=== PATIENT | female | born 1940 | race Caucasian/White ===

== ENCOUNTER 2022-03-14 15:28 | Inpatient (IN) | payer MEDICARE, OTHER ==
[~2022-03-14] VITALS: Ht 165.1 cm; Wt 83.9 kg
[~2022-03-14 15:28] MED LIST: ACETAMINOPHEN650 MG PR; ALBUTEROL1.25 MG/3 INH; ALDACTONE25 MG PO; ARICEPT10 MG PO; ARICEPT5 MG PO; ASPIR 8181 MG PO; AUGMENTIN 875-1 EACH PO; BETAPACE120 MG PO; BETAPACE80 MG PO; BISACODYL10 MG PR; BUDESONIDE0.25 MG/2 INH; BUSPAR 5MG TABLE5 MG PO; BUSPIRONE HCL15 MG PO; CALCIUM500 M1 PO; CARDIZEM 60MG T60 MG PO; CARDIZEM CD120 MG PO; CARDIZEM CD180 MG PO; CARDIZEM60 MG PO; CARVEDILOL25 MG PO; CEFDINIR300 MG PO; CEFUROXIME250 MG PO; COLACE 100MG C100 MG PO; CONSTULOSE10 GM/15 M PO; DESYREL 50 MG T50 MG PO; DIGOXIN125 MCG PO; DILTIAZEM 24HR120 MG PO; DOCUSATE SODIU100 MG PO; DOLOPHINE HCL10 MG PO; DOXYCYCLINE HY100 MG PO; ELIQUIS2.5 MG PO; ELIQUIS5 MG PO; ESCITALOPRAM OX20 MG PO; Eliquis; FEBUXOSTAT40 MG PO; FORMOTEROL20 MCG/2 M INH; HYDRALAZINE HC100 MG PO; HYDRALAZINE HCL50 MG PO; HYDROCODON-ACE1 EAC6 PO; HYDROXYZINE HCL25 MG PO; IMDUR ER TAB 6060 MG PO; IPRAT-ALBUT 0.5-3 ML INH; IRON325 MG PO; LASIX40 MG PO; LEXAPRO TAB 1010 MG PO; LEXAPRO10 MG PO; LIPITOR TAB 2020 MG PO; LIPITOR80 MG PO; LOPRESSOR50 MG PO; LORAZEPAM0.5 MG PO; LORCET HD 10-31 EACH PO; METFORMIN HCL500 MG PO; MINIPRES CAP 2 M2 MG PO; MIRALAX17 GM PO; MIRTAZAPINE15 MG PO; NAMENDA 5 MG TAB5 MG PO; NORCO 10-325 T1 EACH PO; NORVASC 5 MG TAB5 MG PO; NOVOLOG100 UNIT/2 SQ; OMEPRAZOLE20 M1 PO; OMNICEF 300 MG300 MG PO; POTASSIUM CHLO10 MEQ PO; POTASSIUM CHLO20 ME2 PO; PRILOSEC10 M1 PO; PRINIVIL20 MG PO; PRINIVIL5 MG PO; PROBIOTIC 5 BI1 EACH PO; PROTONIX40 MG PO; PROVENTIL HFA6.7 GM PO; REMERON15 MG PO; SENNA LAX8.6 MG PO; SENOKOT8.6 MG PO; SPIRIVA18 MCG PO; SYMBICORT 16010.2 GM INH; SYNTHROID100 MCG PO; TRAZODONE HCL100 MG PO; TRESIBA FL100 UNIT/1 SQ; TYLENOL 500 MG500 MG PO; VISTARIL25 MG PO; VOLTAREN ARTHRI20 GM TOP
[2022-03-14 16:56] LABS: HEMOGLOBIN 9.5 gm/dl (12.3-15.3); RED BLOOD COUNT 4.08 M/UL (4.00-5.10)
[2022-03-15 03:36] LABS: HEMOGLOBIN 8.3 gm/dl (12.3-15.3)
[2022-03-15 03:48] LABS: RED BLOOD COUNT 3.56 M/UL (4.00-5.10); WHITE BLOOD COUNT 16.9 K/UL (4.5-11.0)
[2022-03-15] MEDS ORDERED: CARVEDILOL25 MG PO (10:57)
[2022-03-15] MEDS ORDERED: HYDRALAZINE HCL50 MG PO (10:59)
[2022-03-15] MEDS ORDERED: HYDROCODON-ACE1 EAC6 PO (11:00)
[2022-03-15] MEDS ORDERED: ULORIC 40 MG TA40 MG PO (11:05)
[2022-03-16 03:09] LABS: HEMOGLOBIN 7.8 gm/dl (12.3-15.3); RED BLOOD COUNT 3.38 M/UL (4.00-5.10); WHITE BLOOD COUNT 14.9 K/UL (4.5-11.0)
[2022-03-17 04:50] LABS: HEMOGLOBIN 7.4 gm/dl (12.3-15.3); RED BLOOD COUNT 3.14 M/UL (4.00-5.10); WHITE BLOOD COUNT 14.9 K/UL (4.5-11.0)
[2022-03-18 03:02] LABS: HEMOGLOBIN 7.6 gm/dl (12.3-15.3); RED BLOOD COUNT 3.31 M/UL (4.00-5.10); WHITE BLOOD COUNT 15.5 K/UL (4.5-11.0)
[2022-03-19 02:51] LABS: HEMOGLOBIN 7.6 gm/dl (12.3-15.3); RED BLOOD COUNT 3.24 M/UL (4.00-5.10); WHITE BLOOD COUNT 15.4 K/UL (4.5-11.0)
[2022-03-20 02:51] LABS: HEMOGLOBIN 7.7 gm/dl (12.3-15.3); RED BLOOD COUNT 3.28 M/UL (4.00-5.10); WHITE BLOOD COUNT 13.5 K/UL (4.5-11.0)
--- NOTE | 2022-03-20 16:53 | NUR ---
informed dr. grove of patient complaining of pain on her knees and back and daughter requesting for another pain medication. he acknowledged
[2022-03-21 05:08] LABS: HEMOGLOBIN 8.3 gm/dl (12.3-15.3); RED BLOOD COUNT 3.37 M/UL (4.00-5.10); WHITE BLOOD COUNT 14.6 K/UL (4.5-11.0)
--- NOTE | 2022-03-21 23:49 | NUR ---
CONTACED ONCALL DR. HERVE GORMAN DUE TO NO PARAMETERS ON FILE FOR HYDRALAZINE AND CARDIZEM. PATIENTS BP WAS 110/65 WITH A PULSE OF 85, DR. GORMAN INSTRUCTED TO D/C HYDRALAZINE AND PLACE PARAMETERS ON CARDIZEM OF "HOLD IF B/P IS LESS THAN 100/60 AND/OR PULSE LESS THAN 55 BPM. CONTACTED BLAYNE IN PHARMACY WHO STATED HE WOULD ADD THE PARAMETERS TO THE PATIENTS MEDICATION TO ALERT WHEN SCANNED BY NURSE.
[2022-03-23 02:56] LABS: HEMOGLOBIN 8.2 gm/dl (12.3-15.3); RED BLOOD COUNT 3.33 M/UL (4.00-5.10)
[2022-03-25 12:17] LABS: HEMOGLOBIN 9.1 gm/dl (12.3-15.3); RED BLOOD COUNT 3.65 M/UL (4.00-5.10); WHITE BLOOD COUNT 11.9 K/UL (4.5-11.0)
--- NOTE | 2022-03-25 13:43 | NUR ---
report given yto admiting nurse- darshan @ [facility]
[2022-03-25] MEDS ORDERED: FUROSEMIDE20 MG PO (14:56)
[2022-03-25] MEDS ORDERED: ELIQUIS 5 MG TAB5 MG PO (14:56)
[2022-03-25] MEDS ORDERED: THERAGRAN M TAB1 EA PO (14:56)
[2022-03-25] MEDS ORDERED: ISOSORBIDE MONO30 MG PO (14:56)
--- NOTE | 2022-03-25 18:38 | NUR ---
was called by daughter in the patient room and was informing us that patient complaining of being hot and patient stated kushal dying. patient awake and alert and was sweating. she was not complaining of pain, bs checked was 251, vital signs 150/55, 81, 20, 99%, temp 98.8. provided a cold compress to patient and at this time patient talking to her daughter. patient was not on any distress noted. will continue to monitor.
== END 2022-03-25 21:01 | DRG 533 ==
LOC: ER1 15:28 → M/S 18:03 → CDU 18:03 → M/S 19:50
PROVIDERS: Emergency Medicine; Internal Medicine; Internal Medicine Infectious Disease; Physician Assistant; ADMIT Internal Medicine
PROC: 30233N1 Transfusion of Nonautologous Red Blood Cells into Peripheral Vein, Percutaneous Approach (ICD-10-PCS; principal; 2022-03-20)
DX: S72.412A Displaced unspecified condyle fracture of lower end of left femur, initial encounter for closed fracture (principal); I50.43 Acute on chronic combined systolic (congestive) and diastolic (congestive) heart failure; J18.9 Pneumonia, unspecified organism; S82.041A Displaced comminuted fracture of right patella, initial encounter for closed fracture; I48.92 Unspecified atrial flutter; D68.9 Coagulation defect, unspecified; I13.0 Hypertensive heart and chronic kidney disease with heart failure and stage 1 through stage 4 chronic kidney disease, or unspecified chronic kidney disease; J44.0 Chronic obstructive pulmonary disease with (acute) lower respiratory infection; I48.20 Chronic atrial fibrillation, unspecified; L89.610 Pressure ulcer of right heel, unstageable; N18.30 Chronic kidney disease, stage 3 unspecified; E78.5 Hyperlipidemia, unspecified; E03.9 Hypothyroidism, unspecified; G89.29 Other chronic pain; S92.421A Displaced fracture of distal phalanx of right great toe, initial encounter for closed fracture; S92.321A Displaced fracture of second metatarsal bone, right foot, initial encounter for closed fracture; M54.9 Dorsalgia, unspecified; G47.00 Insomnia, unspecified; M17.11 Unilateral primary osteoarthritis, right knee; E11.22 Type 2 diabetes mellitus with diabetic chronic kidney disease; I08.0 Rheumatic disorders of both mitral and aortic valves; D50.9 Iron deficiency anemia, unspecified; K21.9 Gastro-esophageal reflux disease without esophagitis; F41.9 Anxiety disorder, unspecified; W18.39XA Other fall on same level, initial encounter; Z99.81 Dependence on supplemental oxygen; Z90.710 Acquired absence of both cervix and uterus; Z98.890 Other specified postprocedural states; Z88.5 Allergy status to narcotic agent; Z91.040 Latex allergy status; Z79.01 Long term (current) use of anticoagulants; Z87.01 Personal history of pneumonia (recurrent); Z74.01 Bed confinement status; Z79.82 Long term (current) use of aspirin
CPT/HCPCS: 36415; 36430; 70450; 71045; 72125; 73502; 73552; 73564; 73630; 73700; 80048; 80053; 82550; 82553; 82607; 82728; 82746; 82962; 83540; 83550; 83735; 83880; 84443; 84484; 85025; 85027; 86850; 86900; 86901; 86920; 92526; 92610; 93005; 94640; 94664; 94760; 96374; 96375; 96376; 99285; J1335; J1650; J1756; J1940; J2270; J2405; J3420; J7050; P9016